=== PATIENT | female | born 1990 | race Caucasian/White ===

== ENCOUNTER → 2021-12-11 14:34 | Outpatient (BNVA) | payer SELFPAY | PROVIDERS: Visit Provider Nurse Practitioner Family | DX: E03.9 Hypothyroidism, unspecified (principal); F41.9 Anxiety disorder, unspecified; F32.A Depression, unspecified; F20.9 Schizophrenia, unspecified; R51.9 Headache, unspecified; G89.29 Other chronic pain | CPT/HCPCS: 80053; 80061; 84443; 85025 ==